=== PATIENT | male | born 1995 ===

== ENCOUNTER 2018-05-16 07:56 | Emergency (ER) | payer OTHER ==
[2018-05-16 08:10] VITALS: BP 137/90
--- NOTE | 2018-05-16 08:34 | UC ---
Respiratory Complaint HPI - HPI Summary HPI Summary: Patient has had about 6 weeks of URI/sinus symptoms. Cough, congestion, purulent nasal discharge and intermittent fever. Temp last night 101. OTC meds help symptoms transiently but overall is not improving. Patient is a [employer] student. - History of Current Complaint Chief Complaint: UCRespiratory Stated Complaint: COUGH,CONGESTED Time Seen by Provider: 05/16/18 08:14 Hx Obtained From: Patient Onset/Duration: Gradual Onset, Lasting Weeks, Still Present Timing: Constant Severity Initially: Moderate Severity Currently: Moderate Pain Intensity: 4 Pain Scale Used: 0-10 Numeric Character: Cough: Nonproductive Aggravating Factors: Nothing Alleviating Factors: Nothing Associated Signs And Symptoms: Positive: Fever, Chills, URI, Nasal Congestion, Sinus Discomfort. Negative: Dyspnea, Wheezing - Allergies/Home Medications Allergies/Adverse Reactions: Allergies Allergy/AdvReac Type Severity Reaction Status Date / Time No Known Allergies Allergy Verified 05/16/18 08:10 Home Medications: Home Medications Ibuprofen 600 mg PO ONCE PRN 05/16/18 [History Confirmed 05/16/18] Vilazodone (NF) [Viibryd (NF)] 40 mg PO DAILY 05/16/18 [History Confirmed ] guaiFENesin [Mucinex] 600 mg PO ONCE PRN 05/16/18 [History Confirmed 05/16/18] PMH/Surg Hx/FS Hx/Imm Hx Psychological History: Depression - Surgical History Surgical History: Yes Surgery Procedure, Year, and Place: thyroglosyl duct cyst removal - Family History Known Family History: Positive: Non-Contributory - Social History Alcohol Use: None Substance Use Type: None Smoking Status (MU): Never Smoked Tobacco Review of Systems All Other Systems Reviewed And Are Negative: Yes Constitutional: Positive: Fever, Chills, Fatigue ENT: Positive: Nasal Discharge, Sinus Congestion, Sinus Pain/Tenderness Respiratory: Positive: Cough Cardiovascular: Positive: Negative Gastrointestinal: Positive: Negative Neurological: Positive: Headache Physical Exam Triage Information Reviewed: Yes Appearance: Well-Appearing, No Pain Distress, Well-Nourished Vital Signs: Initial Vital Signs Temp 98.2 F 05/16/18 08:07 Pulse 82 05/16/18 08:07 Resp 18 05/16/18 08:07 BP 137/90 05/16/18 08:07 Pulse Ox 97 05/16/18 08:07 Vital Signs Reviewed: Yes Eyes: Positive: Conjunctiva Clear ENT: Positive: Hearing grossly normal, Pharynx normal, Nasal congestion, Nasal drainage, TMs normal Neck: Positive: Supple, Nontender, No Lymphadenopathy Respiratory Exam: Normal Cardiovascular Exam: Normal Abdomen Description: Positive: Soft Musculoskeletal: Positive: No Edema Neurological: Positive: Alert Psychological: Positive: Age Appropriate Behavior Skin: Negative: Rashes UC Diagnostic Evaluation - Laboratory O2 Sat by Pulse Oximetry: 97 Respiratory Course/Dx - Differential Dx/Diagnosis Provider Diagnosis: Acute rhinosinusitis Discharge - Sign-Out/Discharge Documenting (check all that apply): Patient Departure All imaging exams completed and their final reports reviewed: No Studies - Discharge Plan Condition: Stable Disposition: HOME Prescriptions: Amoxicillin/Clavulanate TAB* [Augmentin TAB 875*] 875 mg PO BID #20 tab Patient Education Materials: Rhinosinusitis (ED) Referrals: [facility] [Provider Group] - If Needed Additional Instructions: TAKE THE MEDICINE OR THE FULL COURSE. REST, HYDRATE, OTC MEDS NEEDED. SEEK FOLLOW-UP WITH YOUR PCP IF YOU ARE NOT IMPROVING OVER THE NEXT 1-2 WEEKS. USE OTC AFRIN FOR NASAL CONGESTION. 2 SPRAYS IN EACH NOSTRIL TWICE DAILY NEEDED. DO NOT USE FOR MORE THAN 3-4 DAYS IN A ROW TO PREVENT DEVELOPING REBOUND CONGESTION. - Billing Disposition and Condition Condition: STABLE Disposition: Home
== END 2018-05-16 08:42 | disposition home or self-care (01) ==
LOC: UCEAST 07:56
DX: J01.90 Acute sinusitis, unspecified (principal)
CPT/HCPCS: 99202; G0463

== ENCOUNTER 2019-05-01 06:20 | Day surgery (SDC) | payer OTHER ==
[~2019-05-01 06:20] MED LIST: Buffered Lidocaine 1% SYRIN* 1 ML/SYRINGE INTRADERM ONE; Dexamethasone IV* 4 MG/ML 1 ML (4 MG) IV SLOW PU ONE; Dexamethasone IV* 4 MG/ML 1 ML (4 MG) ONE; Famotidine IV* 10 MG/ML 2 ML (20 mg) IV ONE; Famotidine IV* 10 MG/ML 2 ML (20 mg) ONE; Lactated Ringers 1000 ML Bag* 1,000 ML IV SCH
[2019-05-01] MEDS ORDERED: ceFAZolin 2 GM in NS PREMIX(*) 2 GM/100 ML BAG IVPB ONE (06:25)
[2019-05-01] MEDS ORDERED: Bupivacaine 0.25% SDV* 30 ML ONE (06:59)
[2019-05-01] MEDS ORDERED: Lidocaine 1% INJ* 10 MG/ML 30 ML SDV ONE (06:59)
[2019-05-01] MEDS ORDERED: fentaNYL* 50 MCG/ML 2 ML VIAL (100 MCG VIAL) ONE ×2 (07:15→08:55)
[2019-05-01] MEDS ORDERED: Propofol* 10 MG/ML 20 ML BTL ONE (07:15)
[2019-05-01] MEDS ORDERED: Midazolam* 1 MG/ML 5 ML VIAL (5 MG) ONE (07:15)
[2019-05-01] MEDS ORDERED: Lidocaine 2% PF * 5 ML VIAL ONE (07:15)
[2019-05-01] MEDS ORDERED: Naloxone* 0.4 MG/ML 1 ML VIAL IV PRN (07:28)
[2019-05-01] MEDS ORDERED: DiMENhydriNATE IV* 50 MG/ML VIAL IV PUSH PRN (07:28)
[2019-05-01] MEDS ORDERED: fentaNYL* 50 MCG/ML 2 ML VIAL (100 MCG VIAL) IV PRN (07:28)
[2019-05-01] MEDS ORDERED: oxyCODONE/Acetamin 5/325 MG* TAB PO PRN (07:28)
[2019-05-01] MEDS ORDERED: HYDROcodone/ACETAMIN 5-325 MG* 1 TAB PO PRN (07:28)
[2019-05-01] MEDS ORDERED: Ketorolac INJ* 30 MG/ML 1 ML VIAL ONE (07:42)
[2019-05-01] MEDS ORDERED: Ondansetron INJ* 2 MG/ML VIAL ONE (08:48)
[2019-05-01] MEDS ORDERED: oxyCODONE/Acetamin 5/325 MG* TAB ONE (10:25)
[2019-05-01 10:57] VITALS: BP 135/86
--- NOTE | 2019-05-01 11:01 | OP ---
DATE OF OPERATION: 05/01/19 - [facility] DATE OF : 89 SURGEON: Blake Galindo MD. ORCHESTRATOR: MAUREEN Bean. An perinatal breastfeeding assistant was needed for the procedure to aid in positioning of the arm and retraction. ANESTHESIOLOGIST: Dr. Zarco. ANESTHESIA: General. PRE-OP DIAGNOSIS: Right middle finger metacarpophalangeal joint radial collateral ligament tear. 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 OPERATIVE PROCEDURE: Repair of right middle finger metacarpophalangeal joint radial collateral ligament at the metacarpal head origin with excision of nonunion fragment. INDICATIONS: Faisal has a chronic injury that has been going on for years. His main symptom is pain. 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 We got x-rays and MRI which showed a cyst near the metacarpal origin and it showed a little bony ossicle. It looked like it was coming off of the proximal aspect of the radial collateral ligament recess. We had talked about treatment options and Faisal wanted to proceed. ESTIMATED BLOOD LOSS: 2 mL. COMPLICATIONS: None. FINDINGS: See above and below. DESCRIPTION OF PROCEDURE: Mr. Santos was seen in the preoperative holding area. The correct site, side, and procedure were identified. We came back to the operating room. The arm was prepped and draped in the usual fashion and a time-out was performed. The arm was exsanguinated with the Esmarch and the tourniquet was inflated to 225 mmHg. I made an incision coming just along the radial aspect of the MCP joint. Full-thickness skin flaps were raised off of the extensor rainey. The radial sagittal band was incised just near its attachment on to the common extensor tendon. The joint capsule was incised longitudinally. Capsular flaps were reflected radially and ulnarly and then the radial collateral ligament was exposed. It was noted to look a little more degenerative near the dorsal aspect of its attachment. More palmarly, the attachment of the ligament looked good. It looked like it was nicely attached to the proximal phalanx. I then brought in the mini C- arm fluoroscopy and I marked out where the cyst was. I then placed a 2.5 mm bone tunnel from the central aspect of the recess, which was right where the cyst was and I brought that bone tunnel out the dorsal ulnar aspect of the metacarpal neck, drilling right through the cyst. I then came more dorsally and I wanted to explore that little osteophyte- looking structure. As I started to release the soft tissue around it, I noticed a large nonunion fragment where the ligament was originating on the metacarpal head. It was attaching to the nonunion fragment and then there was gross motion at the nonunion fragment. I am sure that was the source of the pain. I went ahead and shelled out the nonunion fragment and excised it. I then placed a DePuy mini Mitek suture anchor both distal and proximal to the bone tunnel I created. I then whip-stitched a 2-0 FiberWire suture down into the ligament. The tail of the FiberWire suture was brought through my bone tunnel using a Eat suture passer. All 3 sets of sutures were then tied down sequentially to get very nice ligament to bone apposition and restore the normal footprint of the radial collateral ligament. I had lifted the palmar aspect attached, but the dorsal aspect was fully reapproximated to the bone. I had curetted the bone and I used the rongeur to create a bleeding bone so as to get good bone to ligament healing. At this point, everything was looking good. The wound was irrigated out. The capsule was closed with 4-0 PDS suture. The radial sagittal band was repaired with 4-0 Prolene suture with the knots buried. The skin was closed with 4-0 nylon suture. Marcaine 0.25% was infiltrated about the area. A short arm plaster splint in the intrinsic plus position was applied, bringing the slab around the radial aspect of the fingers so as to protect the radial collateral ligament. The small finger was left out of the splint. He was taken to the recovery room in stable condition. [id number]/[facility] #: [id number] [place]
== END 2019-05-01 11:08 | disposition home or self-care (01) ==
LOC: OREAST 06:20
PROVIDERS: ATTEND Orthopaedic Surgery Hand Surgery
DX: S53.21XD Traumatic rupture of right radial collateral ligament, subsequent encounter (principal); X58.XXXD Exposure to other specified factors, subsequent encounter; Y92.9 Unspecified place or not applicable; F41.8 Other specified anxiety disorders
CPT/HCPCS: 76000; A9270-GY; C1713; J0690; J1100; J1885; J2250; J2405; J2704; J3010; J3490